=== PATIENT | male | born 1945 | race Caucasian/White ===

== ENCOUNTER 2023-07-12 08:45 | Emergency (ER) | payer OTHER, BC ==
[2023-07-12 08:52] VITALS: BP 127/79; PULSE 87; RESP 18; TEMP 97.5; BMI 26.3
[2023-07-12] MEDS ORDERED: OXYMETAZOLINE 0.05% NASAL SOLUTION 15 ML BOTTLE NS ONE ×2 (08:59→09:05)
[2023-07-12] MEDS ORDERED: TRANEXAMIC ACID 1000 MG/10 ML VIAL IVPUSH ONE (09:25)
[2023-07-12] MEDS ORDERED: TRANEXAMIC ACID 1000 MG/10 ML VIAL ONE (09:30)
== END 2023-07-12 11:30 | disposition home or self-care (01) ==
LOC: FER 08:45
PROC: 093K8ZZ Control Bleeding in Nasal Mucosa and Soft Tissue, Via Natural or Artificial Opening Endoscopic (ICD-10-PCS; principal; 2023-07-12)
PROC: 3E033GC Introduction of Other Therapeutic Substance into Peripheral Vein, Percutaneous Approach (ICD-10-PCS; 2023-07-12)
DX: R04.0 Epistaxis (principal)
CPT/HCPCS: 99284-25

== ENCOUNTER 2023-09-22 03:40 | Emergency (ER) | payer OTHER, BC ==
[2023-09-22 03:51] VITALS: BP 158/82; PULSE 88; RESP 18; TEMP 97.7; BMI 29.8
[2023-09-22] MEDS ORDERED: OXYMETAZOLINE 0.05% NASAL SOLUTION 15 ML BOTTLE NS ONE (03:56)
[2023-09-22] MEDS: OXYMETAZOLINE 0.05% NASAL SOLUTION 15 ML BOTTLE NS ONE (04:00)
[2023-09-22] MEDS ORDERED: TRANEXAMIC ACID 1000 MG/10 ML VIAL ONE (05:11)
[2023-09-22] MEDS: TRANEXAMIC ACID 1000 MG/10 ML VIAL IVPUSH ONE (05:30)
== END 2023-09-22 05:57 | disposition home or self-care (01) ==
LOC: FER 03:40
PROC: 3E033GC Introduction of Other Therapeutic Substance into Peripheral Vein, Percutaneous Approach (ICD-10-PCS; principal; 2023-09-22)
DX: R04.0 Epistaxis (principal)
CPT/HCPCS: 99284-25

== ENCOUNTER 2023-10-03 10:59 | Emergency (ER) | payer OTHER, BC ==
[2023-10-03 11:11] VITALS: BP 117/79; PULSE 90; RESP 17; TEMP 97.4; BMI 26.1
[2023-10-03] MEDS ORDERED: SILVER NITRATE 75% APPLIC STCK 1 PKT EACH ONE (11:31)
[2023-10-03] MEDS ORDERED: TRANEXAMIC ACID 1000 MG/10 ML VIAL ONE (11:34)
[2023-10-03] MEDS: SILVER NITRATE 75% APPLIC STCK 1 PKT EACH TP ONE (11:36)
[2023-10-03] MEDS: TRANEXAMIC ACID 1000 MG/10 ML VIAL IVPUSH ONE (11:36)
== END 2023-10-03 13:51 | disposition home or self-care (01) ==
LOC: FER 10:59
PROC: 093K7ZZ Control Bleeding in Nasal Mucosa and Soft Tissue, Via Natural or Artificial Opening (ICD-10-PCS; principal; 2023-10-03)
DX: R04.0 Epistaxis (principal)
CPT/HCPCS: 99291

== ENCOUNTER 2023-10-04 04:37 | Emergency (ER) | payer OTHER, BC ==
[2023-10-04] MEDS ORDERED: SILVER NITRATE 75% APPLIC STCK 1 PKT EACH ONE ×2 (04:45)
[2023-10-04 04:47] VITALS: BP 115/77; PULSE 95; RESP 18; BMI 25.9
[2023-10-04] MEDS ORDERED: ACETAMINOPHEN 500 MG TABLET (FP) ONE (05:09)
[2023-10-04] MEDS: ACETAMINOPHEN 500 MG TABLET (FP) PO ONE (05:10)
== END 2023-10-04 05:50 | disposition home or self-care (01) ==
LOC: FER 04:37
PROC: 093K8ZZ Control Bleeding in Nasal Mucosa and Soft Tissue, Via Natural or Artificial Opening Endoscopic (ICD-10-PCS; principal; 2023-10-04)
DX: R04.0 Epistaxis (principal)
CPT/HCPCS: 99283-25